=== PATIENT | male | born 1955 | race Caucasian/White ===

== ENCOUNTER 2020-06-04 07:28 | Outpatient (CLI) | payer MEDICARE, SELFPAY ==
--- NOTE | ~2020-06-04 | US_ITS ---
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 Hypertension. High cholesterol. TECHNIQUE: Grayscale, color Doppler, and pulsed Doppler images of the aorta and common iliac arteries were obtained. COMPARISON: None. FINDINGS: The proximal aorta measures 2.4 cm greatest sagittal dimension. The mid aorta measures 2.4 cm greates t sagittal dimension. The distal aorta measures 2.4 cm greatest sagittal dimension. The right common internal iliac artery measures 1.4 cm. The left common iliac artery measures 1.4 cm. IMPRESSION: 1. No evidence for aortic aneurysm. Reviewed, dictated and finalized at location A. ING MACHINE OPERATOR
--- NOTE | ~2020-06-04 | CT_ITS ---
EXAMINATION: CT lung screening EXAM DATE: 06/04/2020 07:47 INDICATION: Z87.891 - Personal history of nicotine dependence. TECHNIQUE: Spiral low dose CT of the chest without contrast. Axial, coronal and sagittal images were reviewed. The dose-length product (DLP) for this examination was 171.83 mGy-cm. The exposure was t ailored according to patient size (auto mA exposure control), and iterative reconstruction (ASIR) was used as additional dose reduction technique. Comparison is made to prior examination from 05/09/2019. FINDINGS: There is mild to moderate emphysema and hyperinflation. Tracheobronchial tree is patent. There is no mediastinal, hilar or axillary lymphadenopathy. There are no pleural or pericardial e ffusions. There is no pneumothorax. Heart normal in size. There is mild coronary arterial calci fication, arterial sclerosis. Upper abdomen is unremarkable. There is thoracic spondylosis without osteoblastic or osteolytic lesions identified. IMPRESSION: Lung-RADS category 1, negative (<1%chance of malignancy); recommend continued LDCT screen ing in 1 year. Reviewed, dictated and finalized at location B. S ANALYST IMPRESSION: Lung-RADS category 1, negative (<1%chance of malignancy); recommend continued LDCT screening in 1 year.
== END 2020-06-04 07:29 | disposition home or self-care (01) ==
LOC: ANHIMG 07:35
PROVIDERS: PCP Family Medicine; Visit Provider Family Medicine
DX: Z12.2 Encounter for screening for malignant neoplasm of respiratory organs (principal); Z87.891 Personal history of nicotine dependence; Z13.6 Encounter for screening for cardiovascular disorders
CPT/HCPCS: 76706; G0297

== ENCOUNTER → 2021-06-13 12:39 | Outpatient (CLI) | payer MEDICARE, SELFPAY ==
--- NOTE | ~2021-06-13 | CT_ITS ---
EXAMINATION:CT lung screening DATE: 06/13/2021 13:09 INDICATION: Personal history of nicotine dependence. Smoker who quit 10 years ago with 30 pack year h istory. TECHNIQUE: Computed tomography (CT) of the chest was performed without intravenous contrast. Automate d exposure control and iterative reconstruction technique were employed. The dose-length product (DLP ) was 188.77 mGy-cm. COMPARISON: Chest CT 06/04/2020 FINDINGS: There is mild emphysema. There is stable mild scarring at the lung apices. There are few st able nodules in the lungs measuring up to 4 mm in right lower lobe. No pleural effusion. The heart si ze is normal. There are coronary artery calcifications. No pericardial effusion. There is mild thorac ic spondylosis. There is mild chronic height loss of multiple vertebral bodies. IMPRESSION: 1. Lung-RADS category 2: Benign appearance or behavior. Continue annual screening with noncontrast lo w-dose chest CT in 12 months. Reviewed, dictated and finalized at location A. STANT DIRECTOR OF SECURITY IMPRESSION: 1. Lung-RADS category 2: Benign appearance or behavior. Continue annual screeni ng with noncontrast low-dose chest CT in 12 months.
== END ==
PROVIDERS: PCP Family Medicine; Visit Provider Family Medicine
DX: Z87.891 Personal history of nicotine dependence (principal)
CPT/HCPCS: 71271

== ENCOUNTER → 2022-06-16 11:14 | Outpatient (CLI) | payer MEDICARE, SELFPAY ==
--- NOTE | ~2022-06-16 | CT_ITS ---
EXAMINATION: CT lung screening DATE: 06/16/2022 11:27 INDICATION: Personal history of nicotine dependence, prior smoker with 23 pack year history TECHNIQUE: Computed tomography (CT) of the chest was performed without intravenous contrast. The dose -length product (DLP) was 181.45 mGy-cm. Automated exposure control and iterative reconstruction tech [employer] were employed. COMPARISON: 06/13/2021 FINDINGS: There is mild emphysema. Again seen are scattered stable pulmonary nodules which measure up to 4 mm in the right lower lobe. The lungs are free of acute opacities. No pleural effusion or pneum othorax. No pathologically enlarged thoracic lymph nodes are identified. The heart size is normal. Ca lcified coronary artery atherosclerosis is noted. Cysts are noted in the liver and left kidney. There is mild thoracic spondylosis. Again noted is mild chronic height loss of multiple thoracic vertebral bodies. IMPRESSION: 1. Lung-RADS category 2: Benign appearance or behavior. Continue annual screening with noncontrast lo w-dose chest CT in 12 months. Reviewed, dictated and finalized at location B. ISH MELTER HELPER IMPRESSION: 1. Lung-RADS category 2: Benign appearance or behavior. Continue annual screeni ng with noncontrast low-dose chest CT in 12 months.
== END ==
PROVIDERS: PCP Family Medicine; Visit Provider Physician Assistant
DX: Z12.2 Encounter for screening for malignant neoplasm of respiratory organs (principal); Z87.891 Personal history of nicotine dependence
CPT/HCPCS: 71271

== ENCOUNTER 2022-12-22 08:55 | Outpatient (CLI) | payer MEDICARE, SELFPAY ==
[2022-12-22 13:46] LABS: Kit Draw Collected
== END 2022-12-22 08:56 | disposition home or self-care (01) ==
LOC: ANHGOSHLAB 08:59
PROVIDERS: PCP Family Medicine; Visit Provider Family Medicine
DX: R73.03 Prediabetes (principal); Z12.5 Encounter for screening for malignant neoplasm of prostate; Z11.59 Encounter for screening for other viral diseases
CPT/HCPCS: 36415

== ENCOUNTER 2023-01-22 15:56 | Outpatient (CLI) | payer MEDICARE, SELFPAY ==
[2023-01-22 18:39] LABS: Kit Draw Collected
== END 2023-01-22 15:57 | disposition home or self-care (01) ==
LOC: ANHGOSHLAB 15:57
PROVIDERS: PCP Family Medicine; Visit Provider Family Medicine
DX: E66.3 Overweight (principal); Z84.89 Family history of other specified conditions
CPT/HCPCS: 36415

== ENCOUNTER → 2023-06-30 09:49 | Outpatient (CLI) | payer MEDICARE, SELFPAY ==
--- NOTE | ~2023-06-30 | CT_ITS ---
CT Scan of the Chest without Contrast: Clinical Indication: Cancer screening, personal history of nicotine dependence Technique: Contiguous sections were acquired throughout the chest without intravenous contrast. Dose reduction technique was used on this scan by utilizing automated exposure control and iterative recon struction technique. The dose-length product (DLP) was 170.27 mGy-cm. COMPARISON: 06/16/2022 Findings: There is no evidence of any significant mediastinal, hilar or axillary lymphadenopathy. The mediastin al soft tissues appear normal. There is no evidence of pleural or pericardial effusion. The lungs are clear. No pulmonary nodules or infiltrates are noted. Images through the upper abdomen reveal no abnormalities. Impression: Lung RADS 1: Negative. 12 month follow-up screening CT advised. Reviewed, dictated and finalized at location . RETE FINISHER APPRENTICE Impression: Lung RADS 1: Negative. 12 month follow-up screening CT advised.
== END ==
PROVIDERS: PCP Family Medicine; Visit Provider Family Medicine
DX: Z12.2 Encounter for screening for malignant neoplasm of respiratory organs (principal); Z87.891 Personal history of nicotine dependence
CPT/HCPCS: 71271

== ENCOUNTER 2023-11-04 07:38 | Day surgery (SDC) | payer MEDICARE, SELFPAY ==
[2023-10-19 06:03] VITALS: BMI 28.2
[2023-10-19 13:15] VITALS: BMI 27.3
--- NOTE | 2023-11-03 14:01 | WPDANESEPPF ---
Anes - Initial Pre Proc Eval Procedure: Operation Date: 11/04/23 10:00 Proposed Procedures p Esophagogastroduodenoscopy - Bryson Bernabe MD Date/Time: 11/03/23 14:01 Surgeon: Bryson Bernabe MD Pre Op Diagnosis: Dysphagia Patient Data Age: 67 Gender: M Height: 1.78 m Weight: 86.3 kg Allergies Allergy/AdvReac Type Severity Reaction Status Date / Time Penicillins Allergy Unknown Pt does Verified 11/04/23 08:42 not remember reaction Home Medications Medication Instructions Recorded Confirmed Type albuterol sulfate 90 mcg/actuation See Rx Instructions .Route 07/01/23 11/04/23 Rx aerosol inhaler .COMPLEX #8.5 ea pantoprazole 20 mg tablet,delayed 20 mg PO QAM 10/15/23 11/04/23 History release atorvastatin 10 mg tablet 10 mg PO DAILY 10/19/23 11/04/23 History budesonide-formoterol HFA 160 2 inh inhalation BID PRN Shortness 10/19/23 11/04/23 History mcg-4.5 mcg/actuation aerosol Of Breath inhaler (Symbicort) Patient hx anesthesia problems: none Family hx anesthesia problems: none Results Review: All pre-operative results and documents have been reviewed as part of the pre-operative evaluation. [facility] Past Medical History Medical History (Updated 11/04/23 @ 10:03 by Jacoby Carreno DO) Actinic keratosis Collapsed lung GERD with esophagitis Hyperlipidemia Lung nodules ct 06/16/22: stable Mild asthma Strain of lumbar region Surgical History Surgical History History of tonsillectomy Family History Family History Father Diabetes mellitus, Onset Age: 80 Depression, Onset Age: 80 Hypertension, Onset Age: 80 Family history of elevated blood lipids, Onset Age: 80 Family history of coronary artery disease, Onset Age: 80 Grandparent Family history of glaucoma Other Family history of cardiovascular disease Social History Social History (Updated 10/15/23 @ 10:54 by Betty Dominguez MA) Smoking status: Former smoker Tobacco type: cigarettes Alcohol intake: current Drinks per week: 7 Substance use: never Substance use type: does not use Do You Feel Safe in your Home?: Yes Lack of Transportation: No Lack of Food: Never True Current Housing: I Have Housing Concerned About Future Housing: No Difficulty Paying Gas/Electric Bills: No Difficulty Paying for Meds: No Currently Unemployed: No Education: High School Diploma/GED Difficulty w/ Childcare or Family Care: No Living arrangements: with family Spiritual care concerns: No Anes - Eval Final PreProcedure Day of Procedure 11/03/23 14:01 Patient weight: overweight Heart: regular rate and rhythm Lungs: clear to auscultation Airway: Mallampati scale class II Neurological: alert and oriented Last oral intake: >/= 8 hours ASA classification: III Emergent: no Anesthetic plan: proceed Anesthesia type and monitoring: general GIVS and standard monitoring Results Review: All pre-operative results and documents have been reviewed as part of the pre-operative evaluation. Informed Consent: The patient's anesthetic plan and its attendant risks and benefits were discussed with the patient/family/POA. Questions were solicited and answers provided to the satisfaction of the patient/family/POA.
[2023-11-04 08:50] VITALS: BP 126/84; PULSE 58; RESP 18; TEMP 36.2; O2SAT 100; BMI 26.9
[2023-11-04] MEDS: LACTATED RINGERS 1,000 ML 150 ML IV CONT (09:02)
--- NOTE | 2023-11-04 09:21 | PM.HPGS ---
History of Present Illness History of Present Illness Consent: Risks, benefits, and alternatives have been discussed and questions answered. Patient agrees to proceed with procedure. Chief complaint: Dysphagia Narrative: David Mujica is a 67 year old male referred for EGD notices food occasionally catching in the mid substernal portion of the chest. Past medical history heartburn has improved on taking Pepcid. Previously was on pantoprazole and he resume this on noticing difficulty swallowing. 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 Patient denies any weight loss or bleeding. Referred for follow-up EGD given recent recurrence of dysphagia. Family history noncontributory. Review of Systems Review of Systems: All systems reviewed & are unremarkable except as noted in HPI and below PMFSH Past Medical History Medical History (Updated 11/03/23 @ 14:01 by Jacoby Carreno DO) Actinic keratosis Benign essential HTN Collapsed lung GERD with esophagitis Hyperlipidemia Lung nodules ct 06/16/22: stable Mild asthma Strain of lumbar region Surgical History Surgical History History of tonsillectomy Family History Family History Father Diabetes mellitus, Onset Age: 80 Depression, Onset Age: 80 Hypertension, Onset Age: 80 Family history of elevated blood lipids, Onset Age: 80 Family history of coronary artery disease, Onset Age: 80 Grandparent Family history of glaucoma Other Family history of cardiovascular disease Social History Social History (Updated 10/15/23 @ 10:54 by Betty Dominguez MA) Smoking status: Former smoker Tobacco type: cigarettes Alcohol intake: current Drinks per week: 7 Substance use: never Substance use type: does not use Do You Feel Safe in your Home?: Yes Lack of Transportation: No Lack of Food: Never True Current Housing: I Have Housing Concerned About Future Housing: No Difficulty Paying Gas/Electric Bills: No Difficulty Paying for Meds: No Currently Unemployed: No Education: High School Diploma/GED Difficulty w/ Childcare or Family Care: No Living arrangements: with family Spiritual care concerns: No Meds Home Medications and Allergies Home Medications Medication Instructions Recorded Confirmed Type albuterol sulfate 90 mcg/actuation See Rx Instructions .Route 07/01/23 11/04/23 Rx aerosol inhaler .COMPLEX #8.5 ea pantoprazole 20 mg tablet,delayed 20 mg PO QAM 10/15/23 11/04/23 History release atorvastatin 10 mg tablet 10 mg PO DAILY 10/19/23 11/04/23 History budesonide-formoterol HFA 160 2 inh inhalation BID PRN Shortness 10/19/23 11/04/23 History mcg-4.5 mcg/actuation aerosol Of Breath inhaler (Symbicort) Allergies Allergy/AdvReac Type Severity Reaction Status Date / Time Penicillins Allergy Unknown Pt does Verified 11/04/23 08:42 not remember reaction Vital Signs Vital Signs - 24 hr 11/04/23 08:50 Temperature 97.2 F L Pulse Rate 58 L Respiratory Rate 18 Blood Pressure 126/84 Pulse Oximetry 100 Oxygen Delivery Room Air Exam Narrative: Physical exam reveals patient to be alert. Vital signs stable. HEENT is unremarkable. Patient is anicteric. Lungs are clear to auscultation and percussion is without murmur or extra sounds. Abdomen bowel sounds are present soft nontender with no organomegaly. Digital external rectal exam normal. Assessment and Plan Assessment and plan (1) Dysphagia: Qualifiers: Dysphagia type: esophageal phase Qualified Code(s): R13.19 - Other dysphagia Code(s): R13.10 - Dysphagia, unspecified Status: Acute Assessment and Plan: Patient with difficulty swallowing. Food catching the mid substernal portion of the chest. Plan for this time. Continued anti-r
[2023-11-04 10:16] VITALS: BP 126/79; PULSE 60; RESP 16; O2SAT 97
[2023-11-04 10:26] VITALS: BP 131/78; PULSE 57; RESP 15; O2SAT 97
[2023-11-04 10:36] VITALS: BP 125/68; PULSE 58; RESP 15; O2SAT 99
--- NOTE | 2023-11-04 12:55 | WPDANESPN ---
Anes - Prog Note Post-Op Date/Time: 11/04/23 12:55 Cardiovascular status: normal Respiratory status: normal Airway patency: baseline Mental status: baseline Post-Op hydration status: normal Vital Signs: Last Vital Signs Temp 36.2 C L 11/04/23 08:50 Pulse 58 L 11/04/23 10:36 Resp 15 11/04/23 10:36 BP 125/68 11/04/23 10:36 Pulse Ox 99 11/04/23 10:36 O2 Del Method Room Air 11/04/23 10:36 Pain Score (VAS): 0 I/O: Intake & Output 11/03/23 11/04/23 11/04/23 23:59 07:59 15:59 Intake Total 500 Balance 500 Post-procedural complaints: none Patient Feedback: Patient satisfied with anesthetic care. Other Findings: Patient vital signs back to baseline. Patient denies nausea and vomiting. Patient's pain under control. Patient OK for discharge.
== END 2023-11-04 10:54 | disposition home or self-care (01) ==
PROVIDERS: PCP Family Medicine; Visit Provider Internal Medicine Gastroenterology
PROC: 0DJ08ZZ Inspection of Upper Intestinal Tract, Via Natural or Artificial Opening Endoscopic (ICD-10-PCS; CPT 43235; principal; 2023-11-04 10:00)
DX: R13.19 Other dysphagia (principal); Q39.4 Esophageal web
CPT/HCPCS: 43450

== ENCOUNTER 2024-05-19 08:06 | Outpatient (CLI) | payer MEDICARE, SELFPAY ==
[2024-05-19 13:48] LABS: Alanine Aminotransferase 17 U/L (6-50); Albumin Level 4.2 g/dL (3.5-5.1); Alkaline Phosphatase 41 U/L (38-126); Anion Gap 4 mmol/L (4-12); Aspartate Amino Transferase 55 U/L (17-59); Bilirubin,Total 0.8 mg/dL (0.2-1.3); Blood Urea Nitrogen 19 mg/dL (9-20); Calcium 8.9 mg/dL (8.4-10.2); Carbon Dioxide 29 mmol/L (22-30); Chloride 99 mmol/L (98-107); Cholesterol 166 mg/dL (0-200); Estimated Glomerular Filt Rate > 60; Glucose 90 mg/dL (65-110); HDL Direct 47 mg/dL; Potassium 4.5 mmol/L (3.4-5.0); Sodium 132 mmol/L (137-145); Triglycerides 46 mg/dL (<150)
[2024-05-19 13:59] LABS: LDL Cholesterol Direct 86 mg/dL
[2024-05-19 14:16] LABS: Prostate Specific Antigen 3.1 ng/mL (< OR = 4.0)
== END 2024-05-19 08:07 | disposition home or self-care (01) ==
LOC: ANHGOSHLAB 08:06
PROVIDERS: PCP Family Medicine; Visit Provider Family Medicine
DX: R73.03 Prediabetes (principal); E78.5 Hyperlipidemia, unspecified; Z12.5 Encounter for screening for malignant neoplasm of prostate
CPT/HCPCS: 36415; 80053; 80061; 83036; 84153; G0103

== ENCOUNTER 2024-07-18 13:58 | Outpatient (CLI) | payer MEDICARE, SELFPAY ==
--- NOTE | ~2024-07-18 | CT_ITS ---
EXAMINATION:CT lung screening DATE: 07/18/2024 14:24 INDICATION: Personal history of nicotine dependence. Smoker who quit 14 years ago with 30 pack year h istory. TECHNIQUE: Computed tomography (CT) of the chest was performed without intravenous contrast. Automate d exposure control and iterative reconstruction technique were employed. The dose-length product (DLP ) was 153.36 mGy-cm. COMPARISON: Chest CT 06/30/2023 FINDINGS: There is mild emphysema. There is mild scarring at the lung apices. There is mild dependent atelectasis bilaterally. Again seen are a few nodules in the lungs measuring up to 4 mm. No pleural effusion. The heart size is normal. There are coronary artery calcifications. No pericardial effusion . There is a 2.9 cm cyst in left kidney. There are cysts in the liver measuring up to 16 mm. There is moderate thoracic spondylosis. There is chronic anterior wedging of multiple vertebral bodies. IMPRESSION: 1. Lung-RADS category 2: Benign appearance or behavior. Continue annual screening with noncontrast lo w-dose chest CT in 12 months. Reviewed, dictated and finalized at location A. PING AND RECEIVING OPERATOR IMPRESSION: 1. Lung-RADS category 2: Benign appearance or behavior. Continue annual screeni ng with noncontrast low-dose chest CT in 12 months.
== END 2024-07-18 13:59 | disposition home or self-care (01) ==
LOC: MICIMG 13:58
PROVIDERS: PCP Family Medicine; Visit Provider Family Medicine
DX: Z12.2 Encounter for screening for malignant neoplasm of respiratory organs (principal); Z87.891 Personal history of nicotine dependence
CPT/HCPCS: 71271

== ENCOUNTER 2024-11-28 08:19 | Outpatient (CLI) | payer MEDICARE, SELFPAY ==
[2024-11-28 12:52] LABS: Alanine Aminotransferase 17 U/L (6-50); Albumin Level 4.1 g/dL (3.5-5.1); Alkaline Phosphatase 32 U/L (38-126); Anion Gap 7 mmol/L (4-12); Aspartate Amino Transferase 42 U/L (17-59); Bilirubin,Total 0.4 mg/dL (0.2-1.3); Blood Urea Nitrogen 18 mg/dL (9-20); Calcium 9.2 mg/dL (8.4-10.2); Carbon Dioxide 27 mmol/L (22-30); Chloride 101 mmol/L (98-107); Cholesterol 150 mg/dL (0-200); Estimated Glomerular Filt Rate > 60; Glucose 98 mg/dL (65-110); HDL Direct 42 mg/dL; Potassium 4.3 mmol/L (3.4-5.0); Sodium 135 mmol/L (137-145); Total Protein 6.4 g/dL (6.3-8.2); Triglycerides 58 mg/dL (<150)
[2024-11-28 13:03] LABS: LDL Cholesterol Direct 79 mg/dL
== END 2024-11-28 08:20 | disposition home or self-care (01) ==
PROVIDERS: PCP Family Medicine; Visit Provider Family Medicine
DX: R73.9 Hyperglycemia, unspecified (principal); E78.2 Mixed hyperlipidemia
CPT/HCPCS: 36415; 80053; 80061; 83036